=== PATIENT | female | born 1955 | race Caucasian/White ===

== ENCOUNTER 2017-11-17 09:37 | Inpatient (IN) | payer BC, OTHER ==
[2017-10-29 11:27] VITALS: BMI 36.0
--- NOTE | 2017-10-29 12:33 | PAT Medication Instructions ---
Service Date Oct 29, 2017. Current Home Medication List Aspirin (Aspirin Ec), 81 MG PO QAM Atorvastatin (Lipitor), 40 MG PO QPM Betamethasone Dip Augmented (Augmented Betamethasone D), 1 DOSE TOP QD PRN for PRN Carvedilol (Coreg), 6.25 MG PO BID Cyclobenzaprine Hcl (Flexeril), 10 MG PO TID PRN for Muscle Spasms Ergocalciferol (Vitamin D 94680 Unit), 50,000 UNIT PO UD Levothyroxine Sodium (Synthroid), 25 MCG PO QAM Losartan Potassium (Cozaar), 100 MG PO QAM Meloxicam (Mobic), 15 MG PO QAM Metformin Hcl (Glucophage), 500 MG PO QPM Zolpidem Tartrate (Zolpidem Tartrate), 1 TAB PO HS PRN for Insomnia [Ketoconazole Cr], 1 DOSE TOP UD PRN for HANDS Medication Instructions For Your Scheduled Surgery -Check with the surgeon for instructions for: Meloxicam (Mobic), 15 MG PO QAM - Hold the following medications 24 hours prior to surgery: Betamethasone Dip Augmented (Augmented Betamethasone D), 1 DOSE TOP QD PRN for PRN [Ketoconazole Cr], 1 DOSE TOP UD PRN for HANDS - Hold the following medications the morning of surgery: Cyclobenzaprine Hcl (Flexeril), 10 MG PO TID PRN for Muscle Spasms Ergocalciferol (Vitamin D 50514 Unit), 50,000 UNIT PO UD Losartan Potassium (Cozaar), 100 MG PO QAM - Take the following medications the morning of surgery with a sip of water: Aspirin (Aspirin Ec), 81 MG PO QAM Carvedilol (Coreg), 6.25 MG PO BID Levothyroxine Sodium (Synthroid), 25 MCG PO QAM - Take the following medications as scheduled the night before surgery: Atorvastatin (Lipitor), 40 MG PO QPM Carvedilol (Coreg), 6.25 MG PO BID Cyclobenzaprine Hcl (Flexeril), 10 MG PO TID PRN for Muscle Spasms (if needed) Metformin Hcl (Glucophage), 500 MG PO QPM Zolpidem Tartrate (Zolpidem Tartrate), 1 TAB PO HS PRN for Insomnia (if needed) If you have any questions please call us at [phone] or [phone] or [phone]
--- NOTE | 2017-10-29 13:00 | DIAGNOSTIC IMAGING REPORT ---
CHEST 2 VIEWS ROUTINE CLINICAL HISTORY: PAT preoperative evaluation COMPARISON STUDY: No previous studies for comparison. FINDINGS: The bones soft tissues and hemidiaphragms are normal. The cardiomediastinal silhouette is normal. The lungs are clear. The pulmonary vasculature is normal. IMPRESSION: Negative chest. The above report was generated using voice recognition software. It may contain grammatical, syntax or spelling errors. Electronically signed by: Jarrod Mccann M.D. 10/29/2017 12:59 PM Dictated Date/Time: 10/29/2017 12:58 PM
[2017-10-29 13:01] LABS: PTT PATIENT 26.1 SECONDS (21.0-31.0)
[2017-10-29 13:04] LABS: BASO % 0.7 %; BASO ABS # 0.06 K/uL (0-0.2); EOS % 2.6 %; EOS ABS # 0.23 K/uL (0-0.5); HEMATOCRIT 44.6 % (37-47); IG# 0.03 K/uL (0.00-0.02); LYMPH % 27.6 %; LYMPH ABS # 2.46 K/uL (1.2-3.4); MEAN CELL VOLUME 88.5 fL (80-100); MEAN CORPUSCULAR HEMOGLOBIN 29.8 pg (25-34); MEAN CORPUSCULAR HGB CONC 33.6 g/dl (32-36); MEAN PLATELET VOLUME 11.1 fL (7.4-10.4); MONO ABS # 0.62 K/uL (0.11-0.59); NEUT % 61.8 %; PLATELET COUNT 239 K/uL (130-400); RED CELL DISTRIBUTION WIDTH CV 13.6 % (11.5-14.5); RED CELL DISTRIBUTION WIDTH SD 43.9 fL (36.4-46.3)
[2017-10-29 13:14] LABS: HEMOGLOBIN A1C 6.2 % (4.5-5.6)
[2017-10-29 13:38] LABS: ALBUMIN 3.8 gm/dl (3.4-5.0); CALCIUM 9.1 mg/dl (8.5-10.1); CREATININE 0.84 mg/dl (0.60-1.20); POTASSIUM 4.5 mmol/L (3.5-5.1)
--- NOTE | 2017-10-30 11:04 | HISTORY & PHYSICAL EXAMINATION ---
DATE OF ADMISSION: 11/17/2017 CHIEF COMPLAINT: Right knee pain. HISTORY OF PRESENT ILLNESS: Radha is a 61-year-old female with a history of right knee pain since 03/2017. The patient rates her pain at 8/10. She has pain with her daily activities. She has limited standing and walking tolerance. Pain is worse with weightbearing. The patient has had injections, bracing, NSAIDs and home exercise program. She has failed conservative treatment and is scheduled for right knee replacement. PAST MEDICAL HISTORY: Hypertension, hypercholesterolemia, heart disease with stent placement in 2013, COPD and borderline diabetes. PAST SURGICAL HISTORY: Appendectomy, cardiac stent, left TKA, tonsillectomy, hysterectomy, cholecystectomy, carotid endarterectomy and hernia x2. SOCIAL HISTORY: The patient denies current alcohol or tobacco use. She quit smoking in 2013 when her cardiac issues developed. She lives in a single story home. She is , but lives with her son. She is retired. FAMILY HISTORY: Negative for DVT. MEDICATIONS: Metformin 500 mg daily, cyclobenzaprine 10 mg daily, carvedilol 6.25 mg b.i.d., atorvastatin 40 mg daily, levothyroxine 25 mcg daily, losartan 100 mg daily, zolpidem 10 mg daily, aspirin 81 mg daily, meloxicam 15 mg daily, ketaconazole 2% cream p.r.n. ALLERGIES: BETADINE, TYLENOL, LODINE, DEMEROL, ZEBETA, PREDNISONE, SULFA, THIAZIDE DIURETICS, ACETAMINOPHEN, MEPERIDINE, CODEINE, RELAFEN, AZITHROMYCIN. REVIEW OF SYSTEMS: See HPI. Ten other systems reviewed, all negative. PHYSICAL EXAMINATION: VITAL SIGNS: Height 5 feet 1 inch, weight 190 pounds, BMI 36. GENERAL: This is a well-developed, well-nourished female who is alert and oriented x3. Mood and affect are appropriate. HEENT: Normocephalic, atraumatic. Mucous membranes are moist and intact. NECK: Supple without lymphadenopathy. HEART: Regular rate and rhythm without murmurs, rubs or gallops. LUNGS: Clear to auscultation without wheezes or rhonchi. ABDOMEN: Soft and nontender. Bowel sounds are equal and active. EXTREMITIES: No ecchymosis, redness or warmth. She has varus deformity. Range of motion is from 0-115 degrees. She has +1 medial laxity. She has mild effusion. No distal edema. She is neurovascularly intact with +5/5 strength. X-RAY EXAMINATION: AP and lateral views show joint space narrowing and osteophyte formation. IMPRESSION: Degenerative joint disease, right knee. PLAN: The patient will be admitted for a right total knee arthroplasty. We will plan on aspirin for DVT prophylaxis and home health for therapy upon discharge.
[~2017-11-17] VITALS: Ht 154.9 cm; Wt 86.5 kg
[2017-11-17] VITALS (9 sets, daily range): BP systolic 99–162; BP diastolic 64–80; PULSE 68–87; TEMP 36.6–36.9; O2SAT 92–99; Ht 154.9 cm; Wt 86.5 kg
--- NOTE | 2017-11-17 09:35 | History & Physical Bridge Note ---
H&P Re-Evaluation Bridge Note: I have examined the patient, reviewed the History & Physical and in the interval since the performance of the History & Physical I have noted the following changes of clinical significance: No changes noted
[~2017-11-17 09:37] MED LIST: ACETAMINOPHEN 500 MG TAB PO SCH; ASPI81TA28 PO; ATOR-24 PO; ATROPINE SULFATE 0.1 MG/ML 5ML SYR IV PRN; CARV6.252 PO; CEFAZOLIN 2000MG IV PUSH 15 ML IV SCH; CYCL10TA6 PO; CeleBREX 200 MG CAP PO SCH; DEXAMETHASONE 4 MG TAB PO SCH; DPRO15 TOP; ERGO500037 PO; EpHEDrine SULFATE INJ 50 MG/ML AMP IV PRN; FAMOTIDINE 20 MG TAB PO SCH; FENTANYL CITRATE INJ 50 MCG/1 ML 2 ML VIAL ONE; GABAPENTIN 600 MG PO SCH; GLC/500 PO; KETOCONAZOLE TOP; LEVO25TA PO; LOSA1TAB38 PO; MELO7.5T5 PO; MIDAZOLAM HCL 1 MG/ML 2ML VIAL ONE; ONDANSETRON INJ 2 MG/ML 2 ML VIAL IV PRN; ROPIVACAINE 5MG/ML 30 ML 150 MG, BUPIVACAINE 0.5% MPF INJ 30 ML, EpINEphrine HCL INJ 0.... INFIL SCH; SODIUM CHLORIDE 0.9% 1000ML 1,000 ML IV SCH; ZOLP5TAB6 PO; [UNRECOGNIZED DRUG - REMARK] SCH; [UNRECOGNIZED DRUG - REMARK] SCH; [UNRECOGNIZED DRUG - REMARK] SCH; [UNRECOGNIZED DRUG - REMARK] SCH
[2017-11-17] MEDS ORDERED: BUPIVACAINE 0.5 % 5 MG/1 ML PF 10ML VIAL ONE (10:55)
[2017-11-17] MEDS ORDERED: BUPIVACAINE 0.25% 30 ML VIAL ONE ×3 (10:55→13:24)
[2017-11-17] MEDS ORDERED: BACITRACIN 50000 UNIT VIAL ONE (11:31)
[2017-11-17] MEDS ORDERED: MIDAZOLAM HCL 1 MG/ML 2ML VIAL ONE (12:25)
[2017-11-17] MEDS: POVIDONE-IODINE OP SOLN 30 ML BTL ONE ×2 (12:58→13:47)
[2017-11-17] MEDS ORDERED: EpHEDrine SULFATE 50MG/5ML SYR ONE (13:11)
[2017-11-17] MEDS ORDERED: PHENYLEPHRINE 100MCG/ML 5ML SYR ONE ×2 (13:11→13:34)
[2017-11-17] MEDS ORDERED: LIDOCAINE HCL 2% 2 ML VIAL (20MG/ML) ONE (13:11)
[2017-11-17] MEDS ORDERED: BUPIVACAINE LIPOSOME 1/3% 266 MG/20 ML VIAL ONE (13:13)
[2017-11-17] MEDS ORDERED: BUPIVACAINE 0.5 % 5 MG/1 ML MPF 30ML VIAL ONE (13:17)
[2017-11-17] MEDS ORDERED: SODIUM CHLORIDE 0.9% INJ 10 ML VIAL ONE (13:18)
[2017-11-17] MEDS ORDERED: SODIUM CHLORIDE 0.9% PF 50 ML VIAL ONE (13:18)
[2017-11-17] MEDS ORDERED: EpINEphrine INJ 1MG/ML AMP 1 MG/ML AMP ONE (13:22)
[2017-11-17] MEDS ORDERED: ONDANSETRON INJ 2 MG/ML 2 ML VIAL ONE (13:34)
--- NOTE | 2017-11-17 13:43 | [facility] Post Operative Brief Note ---
Immediate Operative Summary Operative Date November 17, 2017. Pre-Operative Diagnosis Degenerative Joint Disease, Right Knee Post-Operative Diagnosis Degenerative Joint Disease, Right Knee Procedure(s) Performed Right Total Knee Arthroplasty utilizing Machado nephLimei [employer]vertising journey to non-block total knee arthroplasty size 3 femur to tibia 9 polyethylene [address] Lopez Health And Safety Advisor Surgeon(s) Jarrod Castro PA-C, Dr Deangelo James Estimated Blood Loss 5cc Findings Consistent with Post-Op Diagnosis Specimens A: Right Knee Bone and Tissue Anesthesia Type MAC Spinal Regional Complication(s) none Disposition Disposition: Recovery Room / PACU
--- NOTE | 2017-11-17 13:44 | [facility] Operative Report ---
Operative Report Operative Date November 17, 2017. Pre-Operative Diagnosis Degenerative Joint Disease, Right Knee Post-Operative Diagnosis Degenerative Joint Disease, Right Knee Procedure(s) Performed Right Total Knee Arthroplasty utilizing Machado Yecuris journey to non-block total knee arthroplasty size 3 femur to tibia 9 polyethylene [address] Lopez Textile Science Technician Surgeon(s) Jarrod Castro PA-C, Dr Deangelo James Estimated Blood Loss 5cc Findings This time surgery patient with evidence of tricompartmental degenerative joint disease subchondral cystic changes sclerosis marginal osteophytes pseudo- ligamentous laxity moderate effusion with patellofemoral crepitus medial joint line pain tenderness as well Specimens A: Right Knee Bone and Tissue Anesthesia Type MAC Spinal Regional Complication(s) none Disposition Recovery Room / PACU Indications Patient presents after failing attempts at conservative management including physical therapy anti-inflammatories relative rest activity modification intra- articular injections including Visco supplementation as well as corticosteroids and ulnar response to conservative management patient presents for total knee arthroplasty Description of Procedure After proper prepping and draping of the Right lower extremity anterior midline incision was made over the region of the extensor extensor mechanism after meticulous hemostasis was obtained and maintained in subcutaneous tissues a medial parapatellar incision was made The patella was subluxed lateralward the medial lateral gutter were cleaned from any hypertrophic synovitis and scar tissue of the distal femoral block was placed and the distal femoral osteotomy cut was made subsequently the chamfers anterior and posterior osteotomy cuts were made utilizing the 4-in-1 block the tibia was subsequently subluxed anteriorward medial and ateral meniscal remnants were excised in their entirety remnants of the anterior and posterior cruciate ligaments were excised in their entirety excellent exposure of the proximal tibia was obtained the tibial osteotomy guide was placed on the proximal tibial osteotomy cut was made once again the knee was irrigated with copious amounts of sterile saline solution the patella was subsequently everted lateralward thickened scar tissue around the patella was removed the patella was subsequently cut utilizing a freehand technique and was drilled prepared for final preparation and placement of patella socially flexion-extension gaps were checked and the equal and symmetric trials were placed to the appropriate femoral and tibial trials with poly-spacer being placed for equal flexion and extension gaps and full range of motion including extension to 0 and flexion to 140 the trial components after having been taken to recovery range of motion was subsequently removed meticulous hemostasis was obtained and maintained subsequently a knee block injection of joint cocktail including ropivacaine 0.5% 150 mg. Bupivacaine 0.5 % epinephrine 1-200,030 mL's toradol 30 mg dexamethasone 4 mg ketamine 10 mg clonidine 100 micrograms normal saline solution 30 mg was infiltrated into the soft tissues of the posterior knee medial lateral gutters and periosteal synovium special attention was paid to protect neurovascular structures at all times subsequently trial components having been removed the knee was irrigated with sterile saline solution. debris was removed the proximal tibia was subsequently prepared and was made ready for the placement of the tibial component tibial component was also cemented and tamped into position the femoral component was subsequently placed and cemented in the position the patellar component was subsequently cemented in position because hemostasis once again obtained and maintained wound having been thoroughly irrigated with debridement and debridement lavage was performed as well as a medial parapatellar incision closed with #1 Vicryl in interrupted fashion subcutaneous was closed with #2 Vicryl skin was closed with skin clips. PA-C was necessary for prepping and drapping as well as wound closure of deep fascia Sub cutaneous tissue and skin and was necessary for the case. A sterile compressive dressing was placed patient was taken to recovery in stable condition of report dictated by John I attest to the content of the Intraoperative Record and any orders documented therein. Any exceptions are noted below. I attest to the content of the Intraoperative Record and any orders documented therein. Any exceptions are noted below.
[2017-11-17] MEDS: SODIUM CHLORIDE 0.9% 1000ML 1,000 ML IV SCH (14:18)
[2017-11-17] MEDS ORDERED: MoRPHine SULFATE 4 MG/ML 1 ML CARP\\VIAL IV PRN (14:30)
[2017-11-17] MEDS ORDERED: ZOLPIDEM TARTRATE 5 MG TAB PO PRN (14:30)
[2017-11-17] MEDS ORDERED: CYCLOBENZAPRINE HCL 10 MG TAB PO PRN (14:30)
[2017-11-17] MEDS ORDERED: MAGNESIUM HYDROXIDE SUSP 30 ML UDC PO PRN (14:30)
[2017-11-17] MEDS ORDERED: ALUMINUM/MAGNESIUM/SIMETH (MAALOX MAX) 30 ML UDC PO PRN (14:30)
[2017-11-17] MEDS ORDERED: SOD PHOSPHATE/SOD BIPHOSPHATE ENEMA 132 ML BTL PR PRN (14:30)
[2017-11-17] MEDS ORDERED: ONDANSETRON INJ 2 MG/ML 2 ML VIAL IV PRN (14:30)
[2017-11-17] MEDS ORDERED: BISACODYL 10 MG SUPP PR PRN (14:30)
--- NOTE | 2017-11-17 14:48 | DIAGNOSTIC IMAGING REPORT ---
RIGHT KNEE 2 VIEWS History: Right total knee arthroplasty. Degenerative arthritis. Postop. FINDINGS: The patient is status post a right total knee arthroplasty. The hardware is intact. No fracture or dislocation. Surgical drains are in place. IMPRESSION: Right total knee arthroplasty. No evidence for hardware complication. Electronically signed by: Chris Kiran M.D. 11/17/2017 2:47 PM Dictated Date/Time: 11/17/2017 2:45 PM
--- NOTE | 2017-11-17 15:11 | Anesthesiology Progress Note ---
Anesthesia Post Op Note Date & Time November 17, 2017 at 15:11 Vital Signs Pain Intensity: 0 Vital Signs Past 12 Hours Date Time Temp Pulse Resp B/P (MAP) Pulse Ox O2 Delivery O2 Flow Rate FiO2 11/17/17 15:05 37.0 75 18 102/56 98 Nasal Cannula 2 11/17/17 14:55 71 13 101/66 98 Nasal Cannula 2 11/17/17 14:45 75 20 110/59 98 Nasal Cannula 2 11/17/17 14:35 73 13 94/58 (71) 96 Nasal Cannula 2 11/17/17 14:25 74 12 103/52 99 Oxymask 6 11/17/17 14:18 36.7 76 16 73/43 (53) 99 Oxymask 6 11/17/17 10:28 36.9 79 20 162/80 99 Room Air Notes Mental Status: alert / awake / arousable, participated in evaluation Pt Amnestic to Procedure: Yes Nausea / Vomiting: adequately controlled Pain: adequately controlled Airway Patency, RR, SpO2: stable & adequate BP & HR: stable & adequate Hydration State: stable & adequate Neuraxial Anesthesia: was administered, sensory block is resolving Anesthetic Complications: no major complications apparent
[2017-11-17] MEDS ORDERED: MoRPHine SULFATE 10 MG/ML CARP/VIAL IV PRN (16:00)
[2017-11-17] MEDS: TAPENTADOL HCL 50 MG TAB PO PRN (18:27)
[2017-11-17] MEDS: CEFAZOLIN IV 2,000 MG in SYRINGE 0 ML IV SCH (21:32)
[2017-11-17] MEDS: ATORVASTATIN 40 MG TAB PO SCH (21:33)
[2017-11-17] MEDS: SENNA 8.6 MG TAB PO SCH (21:33)
[2017-11-17] MEDS: ASPIRIN 81 MG ECTAB PO SCH (21:33)
[2017-11-17] MEDS: DOCUSATE SODIUM 100 MG CAP PO SCH (21:34)
[2017-11-17] MEDS: CARVEDILOL 6.25 MG TAB PO SCH (21:34)
[2017-11-18] VITALS (7 sets, daily range): BP systolic 109–135; BP diastolic 59–78; PULSE 73–89; TEMP 36.4–37; O2SAT 93–98
[2017-11-18] MEDS: SODIUM CHLORIDE 0.9% 1000ML 1,000 ML IV SCH ×2 (01:53→10:46)
[2017-11-18] MEDS: TAPENTADOL HCL 50 MG TAB PO PRN ×3 (02:05→21:16)
[2017-11-18] MEDS: CEFAZOLIN IV 2,000 MG in SYRINGE 0 ML IV SCH (04:22)
[2017-11-18] MEDS: LEVOTHYROXINE 25 MCG TAB PO SCH (05:34)
[2017-11-18 06:15] LABS: HEMATOCRIT 33.4 % (37-47); HEMOGLOBIN 10.9 g/dL (12.0-16.0); MEAN CELL VOLUME 89.1 fL (80-100); MEAN CORPUSCULAR HEMOGLOBIN 29.1 pg (25-34); MEAN CORPUSCULAR HGB CONC 32.6 g/dl (32-36); MEAN PLATELET VOLUME 10.8 fL (7.4-10.4); PLATELET COUNT 171 K/uL (130-400); RED CELL DISTRIBUTION WIDTH CV 13.9 % (11.5-14.5); RED CELL DISTRIBUTION WIDTH SD 45.4 fL (36.4-46.3); WHITE BLOOD COUNT 9.85 K/uL (4.8-10.8)
[2017-11-18 06:29] LABS: INR 1.1 (0.9-1.1)
[2017-11-18 06:43] LABS: CALCIUM 7.6 mg/dl (8.5-10.1); CREATININE 1.17 mg/dl (0.60-1.20); POTASSIUM 4.6 mmol/L (3.5-5.1)
--- NOTE | 2017-11-18 08:00 | Orthopedic Progress Note ---
Orthopedic Progress Note Date of Service November 18, 2017. Subjective Post OP Day: 1 Additional Notes: Pt awake, alert. c/o pain in the knee this AM. No other complaints. Objective calves soft nontender, N/V intact, dressing C/D/I, A&O x3, toes mobile, hemovac drainage (100ml latest shift) Date Time Temp Pulse Resp B/P (MAP) Pulse Ox O2 Delivery O2 Flow Rate FiO2 11/18/17 06:58 36.7 82 18 119/78 (92) 98 Nasal Cannula 2.0 11/18/17 03:13 37.0 82 16 110/70 (83) 93 Nasal Cannula 2.0 11/18/17 00:40 Room Air 11/17/17 22:55 36.6 83 19 136/69 (91) 92 Room Air 11/17/17 21:34 85 130/74 (92) 92 Room Air 11/17/17 20:47 108/64 (79) 11/17/17 20:12 36.6 87 18 112/72 (85) 99 Nasal Cannula 2.0 11/17/17 19:19 36.6 68 18 111/65 (80) 95 Nasal Cannula 2.0 11/17/17 18:10 36.8 84 16 99/78 (85) 98 Room Air 2.0 11/17/17 17:45 36.9 85 18 137/71 (93) 95 Nasal Cannula 2.0 11/17/17 17:10 Nasal Cannula 11/17/17 17:05 36.8 84 16 108/64 (79) 97 Nasal Cannula 2.0 11/17/17 17:05 Nasal Cannula 11/17/17 16:45 36.2 79 18 98/64 (75) 100 Nasal Cannula 2 11/17/17 16:30 76 14 92/56 (63) 100 Nasal Cannula 2 11/17/17 16:15 74 12 102/49 100 Nasal Cannula 2 11/17/17 16:00 73 15 93/63 (85) 100 Nasal Cannula 2 11/17/17 15:45 71 17 103/58 100 Nasal Cannula 2 11/17/17 15:30 71 16 99/73 100 Nasal Cannula 2 11/17/17 15:15 74 18 117/59 99 Nasal Cannula 2 11/17/17 15:05 37.0 75 18 102/56 98 Nasal Cannula 2 11/17/17 14:55 71 13 101/66 98 Nasal Cannula 2 11/17/17 14:45 75 20 110/59 98 Nasal Cannula 2 11/17/17 14:35 73 13 94/58 (71) 96 Nasal Cannula 2 11/17/17 14:25 74 12 103/52 99 Oxymask 6 11/17/17 14:18 36.7 76 16 73/43 (53) 99 Oxymask 6 11/17/17 10:28 36.9 79 20 162/80 99 Room Air Laboratory Results 24 Hours: Test 11/18/17 05:55 Hematocrit 33.4 % Hemoglobin 10.9 g/dL Prothromb Time International Ratio 1.1 Prothrombin Time 11.5 SECONDS Assessment & Plan Assessment: POD 1 s/p Right TKA Acute Blood Loss Anemia due to surgical loss/dilutional Plan: PT/OT Planning on PT for 2 weeks upon DC Inhouse Planning Pain Management: Morphine, other (Nucynta) DVT Prophylaxis: TEDs, SCDs, ASA Discharge Planning Discharge Planning: home with home health
[2017-11-18] MEDS ORDERED: GLUCOSE 10 TABS/TUBE PO PRN (09:00)
[2017-11-18] MEDS ORDERED: GLUCOSE 40% GEL 15 GM TUBE PO PRN (09:00)
[2017-11-18] MEDS ORDERED: GLUCAGON FOR INJ 1 MG VIAL IM PRN (09:00)
[2017-11-18] MEDS ORDERED: CARBOHYDRATES FOR HYPOGLYCEMIA PO PRN (09:00)
[2017-11-18] MEDS ORDERED: DEXTROSE 50% 50 ML SYR IV PRN (09:00)
[2017-11-18] MEDS: MULTIVITAMIN TAB PO SCH (09:02)
[2017-11-18] MEDS: CARVEDILOL 6.25 MG TAB PO SCH ×2 (09:02→21:16)
[2017-11-18] MEDS: DOCUSATE SODIUM 100 MG CAP PO SCH ×2 (09:02→21:16)
[2017-11-18] MEDS: ASPIRIN 81 MG ECTAB PO SCH ×2 (09:02→21:16)
[2017-11-18] MEDS: PANTOprazole SOD 40 MG TAB PO SCH (09:03)
[2017-11-18] MEDS: LOSARTAN POTASSIUM 50 MG TAB PO SCH (09:03)
[2017-11-18] MEDS: MELOXICAM 7.5 MG TAB PO SCH (09:06)
--- NOTE | 2017-11-18 11:41 | Medical Consult ---
Consultation Date of Consultation: November 18, 2017. Attending Physician: Christophe Lopez D.O. Reason for Consultation: Medical management History of Present Illness Patient is a 61 y/o female, with PMHx of HTN, HLD, CAD s/p cardiac stenting, COPD, hypothyroidism, and pre-DM, s/p R TKA on 11/[address] Lopez. Patient sitting in bedside chair. Eating and drinking OK. Pain is well controlled, currently 10/20. +flatus, no BM postop. Patient denies any fever, chills, sweats , lightheadedness, dizziness, vision changes, CP, palpitations, edema, SOB, wheezing, cough, abdominal pain, nausea, vomiting, diarrhea, urinary symptoms, melena, numbness/tingling, weakness, anxiety/depression, active bleeding, or new skin discoloration/changes. Past Medical/Surgical History PAST MEDICAL HISTORY: Hypertension hypercholesterolemia CAD s/p stent placement in 2013 COPD pre-DM hypothyroidism PAST SURGICAL HISTORY: Appendectomy cardiac stent left TKA tonsillectomy hysterectomy cholecystectomy carotid endarterectomy hernia repair x2 Social History Smoking Status: Former Smoker Alcohol Use: none Drug Use: none Marital Status: Housing Status: lives with family Occupation Status: retired Allergies Coded Allergies: Meperidine (Verified Allergy, Severe, SWELLING, 10/29/17) Acetaminophen (Verified Allergy, Unknown, FACIAL SWELLING, 10/29/17) Azithromycin (Verified Allergy, Unknown, GI UPSET, 10/29/17) Bisoprolol (Verified Allergy, Unknown, ANAPHYLAXIS, 10/29/17) Codeine (Verified Allergy, Unknown, PER PT, SHE HAS TOLERATED MORPHINE AND PERCOCET BEFORE, 08/17/09) Etodolac (Verified Allergy, Unknown, ANAPHYLAXIS, 10/29/17) Hydrochlorothiazide (Verified Allergy, Unknown, ANAPHYLAXIS, 10/29/17) PT STATES SHE DEVELOPED ANAPHYLAXIS AFTER BEING PLACED ON 3 NEW MEDS. UNSURE OF WHICH ONE WAS THE TRUE CAUSE. Latex1 -Allergic Contact Dermititis (Verified Allergy, Unknown, RASH, 10/29) Nabumetone (Verified Allergy, Unknown, NAUSEA/VOMITING, 10/29/17) Oxycodone (Verified Allergy, Unknown, NAUSEA/VOMITING, 10/29/17) Povidone Iodine (Verified Allergy, Unknown, RASH, 10/29/17) Prednisone (Verified Allergy, Unknown, SWELLING, 10/29/17) Propoxyphene (Verified Allergy, Unknown, NAUSEA AND VOMITING, 10/29/17) Sulfa Drugs (Verified Allergy, Unknown, TOLERATES LASIX, GI UPSET, 10/29/17 ) Thiazide-Type Diuretics (Verified Allergy, Unknown, N/V, 10/29/17) Home Medications Reported Home Medications Medications Dose Route/Sig Max Daily Dose Days Date Category Vitamin D 00969 Unit (Ergocalciferol) 50,000 Unit Cap 50,000 Unit PO UD 10/29/17 Reported [Ketoconazole Cr] 1 Dose TOP UD PRN 10/29/17 Reported Mobic (Meloxicam) 7.5 Mg Tab 15 Mg PO QAM 10/29/17 Reported Aspirin Ec (Aspirin) 81 Mg Tab 81 Mg PO QAM 10/29/17 Reported Zolpidem Tartrate 5 Mg Tab 1 Tab PO HS PRN 30 10/29/17 Reported Cozaar (Losartan Potassium) 100 Mg Tab 100 Mg PO QAM 10/29/17 Reported Synthroid (Levothyroxine Sodium) 25 Mcg Tab 25 Mcg PO QAM 10/29/17 Reported Lipitor (Atorvastatin Calcium) 40 Mg Tab 40 Mg PO QPM 10/29/17 Reported Coreg (Carvedilol) 6.25 Mg Tab 6.25 Mg PO BID 10/29/17 Reported Flexeril (Cyclobenzaprine Hcl) 10 Mg Tab 10 Mg PO TID PRN 10/29/17 Reported Glucophage (Metformin Hcl) 500 Mg Tab 500 Mg PO QPM 10/29/17 Reported Current Inpatient Medications Current Inpatient Medications Medications (Trade) Dose Ordered Sig/Lisseth Route Start Time Stop Time Status Last Admin Dose Admin Sodium Chloride 1,000 ml @ 100 mls/hr Q10H IV 11/17/17 14:18 11/18/17 14:17 11/18/17 01:53 100 MLS/HR Magnesium Hydroxide (Milk Of Magnesia Susp) 30 ml Q6H PRN PO 11/17/17 14:30 12/17/17 14:29 Bisacodyl (Dulcolax Supp) 10 mg DAILY PRN PA 11/17/17 14:30 12/17/17 14:29 Sodium Biphosphate/ Sodium Phosphate (Fleet Enema) 132 ml DAILY PRN PA 11/17/17 14:30 12/17/17 14:29 Senna (Senokot Tab) 17.2 mg HS PO 11/17/17 21:00 12/17/17 20:59 11/17/17 21:33 17.2 MG Docusate Sodium (coLACE CAP) 100 mg BID PO 11/17/17 21:00 12/17/17 20:59 11/17/17 21:34 100 MG Diphenhydramine HCl (Benadryl Cap) 25 mg Q8H PRN PO 11/17/17 14:30 12/17/17 14:29 Al Hydrox/Mg Hydrox/Simethicone (Maalox Max Susp) 15 ml Q4H PRN PO 11/17/17 14:30 12/17/17 14:29 Multivitamins (Multivitamin Tab) 1 tab QAM PO 11/18/17 09:00 12/18/17 08:59 Ondansetron HCl (Zofran Inj) 4 mg Q6H PRN IV 11/17/17 14:30 12/17/17 14:29 Pantoprazole Sodium (Protonix Tab) 40 mg QAM PO 11/18/17 09:00 11/21/17 09:01 Aspirin (Ecotrin Tab) 81 mg BID PO 11/17/17 21:00 12/17/17 20:59 11/17/17 21:33 81 MG Atorvastatin Calcium (Lipitor Tab) 40 mg QPM PO 11/17/17 21:00 12/17/17 20:59 11/17/17 21:33 40 MG Carvedilol (Coreg Tab) 6.25 mg BID PO 11/17/17 21:00 12/17/17 20:59 11/17/17 21:34 6.25 MG Cyclobenzaprine HCl (Flexeril Tab) 10 mg TID PRN PO 11/17/17 14:30 12/17/17 14:29 Levothyroxine Sodium (Synthroid Tab) 25 mcg DAILYBB PO 11/18/17 06:00 12/18/17 05:59 11/18/17 05:34 25 MCG Losartan Potassium (coZAAR TAB) 100 mg QAM PO 11/18/17 09:00 12/18/17 08:59 Meloxicam (Mobic Tab) 15 mg QAM PO 11/18/17 09:00 12/18/17 08:59 Zolpidem Tartrate (Ambien Tab) 5 mg HS PRN PO 11/17/17 14:30 12/17/17 14:29 Miscellaneous Information (Order Awaiting Action) 1 ea QS N/A 11/18/17 00:00 12/18/17 00:00 Morphine Sulfate (MoRPHine SULFATE INJ) 2mg IV for Pain rating ... Q4HWA PRN IV 11/17/17 14:30 12/01/17 14:29 Morphine Sulfate (MoRPHine SULFATE INJ) 6 mg Q4HWA PRN IV 11/17/17 16:00 12/01/17 15:59 Tapentadol (Nucynta Tab) `1-2 tabs for pain 1 tab ... Q4H PRN PO 11/18/17 08:15 12/17/17 14:29 Physical Exam Date Time Temp Pulse Resp B/P (MAP) Pulse Ox O2 Delivery O2 Flow Rate FiO2 11/18/17 06:58 36.7 82 18 119/78 (92) 98 Nasal Cannula 2.0 11/18/17 03:13 37.0 82 16 110/70 (83) 93 Nasal Cannula 2.0 11/18/17 00:40 Room Air 11/17/17 22:55 36.6 83 19 136/69 (91) 92 Room Air 11/17/17 21:34 85 130/74 (92) 92 Room Air 11/17/17 20:47 108/64 (79) 11/17/17 20:12 36.6 87 18 112/72 (85) 99 Nasal Cannula 2.0 11/17/17 19:19 36.6 68 18 111/65 (80) 95 Nasal Cannula 2.0 11/17/17 18:10 36.8 84 16 99/78 (85) 98 Room Air 2.0 11/17/17 17:45 36.9 85 18 137/71 (93) 95 Nasal Cannula 2.0 11/17/17 17:10 Nasal Cannula 11/17/17 17:05 36.8 84 16 108/64 (79) 97 Nasal Cannula 2.0 11/17/17 17:05 Nasal Cannula 11/17/17 16:45 36.2 79 18 98/64 (75) 100 Nasal Cannula 2 11/17/17 16:30 76 14 92/56 (63) 100 Nasal Cannula 2 11/17/17 16:15 74 12 102/49 100 Nasal Cannula 2 11/17/17 16:00 73 15 93/63 (85) 100 Nasal Cannula 2 11/17/17 15:45 71 17 103/58 100 Nasal Cannula 2 11/17/17 15:30 71 16 99/73 100 Nasal Cannula 2 11/17/17 15:15 74 18 117/59 99 Nasal Cannula 2 11/17/17 15:05 37.0 75 18 102/56 98 Nasal Cannula 2 11/17/17 14:55 71 13 101/66 98 Nasal Cannula 2 11/17/17 14:45 75 20 110/59 98 Nasal Cannula 2 11/17/17 14:35 73 13 94/58 (71) 96 Nasal Cannula 2 11/17/17 14:25 74 12 103/52 99 Oxymask 6 11/17/17 14:18 36.7 76 16 73/43 (53) 99 Oxymask 6 11/17/17 10:28 36.9 79 20 162/80 99 Room Air General Appearance: no apparent distress, + obese Head: normocephalic, atraumatic Eyes: normal inspection, PERRL ENT: hearing grossly normal Neck: supple Respiratory/Chest: lungs clear, no respiratory distress, no accessory muscle use, + decreased breath sounds (bilateral lung bases ) Cardiovascular: regular rate, rhythm Abdomen/GI: normal bowel sounds, non tender, soft Back: normal inspection Extremities/Musculoskelatal: no calf tenderness, + pertinent finding (hemovac w / bloody output; JASON on LLE; RLE in SMITA bandage ) Neurologic/Psych: alert, oriented x 3, + pertinent finding (drowsy) Laboratory Results Last 24 Hours Test 11/17/17 10:08 11/17/17 14:22 11/17/17 17:29 11/17/17 20:11 Bedside Glucose 122 mg/dl 94 mg/dl 76 mg/dl 145 mg/dl Test 11/18/17 05:55 White Blood Count 9.85 K/uL Red Blood Count 3.75 M/uL Hemoglobin 10.9 g/dL Hematocrit 33.4 % Mean Corpuscular Volume 89.1 fL Mean Corpuscular Hemoglobin 29.1 pg Mean Corpuscular Hemoglobin Concent 32.6 g/dl RDW Standard Deviation 45.4 fL RDW Coefficient of Variation 13.9 % Platelet Count 171 K/uL Mean Platelet Volume 10.8 fL Prothrombin Time 11.5 SECONDS Prothromb Time International Ratio 1.1 Sodium Level 136 mmol/L Potassium Level 4.6 mmol/L Chloride Level 104 mmol/L Carbon Dioxide Level 28 mmol/L Anion Gap 4.0 mmol/L Blood Urea Nitrogen 22 mg/dl Creatinine 1.17 mg/dl Est Creatinine Clear Calc Drug Dose 49.1 ml/min Estimated GFR () 57.4 Estimated GFR (Non- 49.6 BUN/Creatinine Ratio 18.5 Random Glucose 127 mg/dl Calcium Level 7.6 mg/dl Assessment & Plan Patient is a 61 y/o female, with PMHx of HTN, HLD, CAD s/p cardiac stenting, hypothyroidism, COPD, and pre-DM, s/p R TKA on 11/[address] Lopez. s/p R TKA on 11/[address] Lopez: - Surgical management, pain management, PT/OT, and DVT prophylaxis - Bowel regimen ordered - Encourage incentive spirometer - Postop CBC and PRP- STABLE Acute blood loss anemia in postop setting- STABLE: Follow CBC CAD s/p cardiac stenting, HTN, HLD: Continue ASA, Lipitor, Losartan, Coreg Hypothyroidism: Continue Synthroid Pre-DM- hgbA1c 6.2%: - Hold Metformin while inpatient - BSG ACHS and ISS GI prophylaxis: Protonix daily DVT prophylaxis: ASA BID Code status: LEVEL I, FULL Dispo: As per primary team
[2017-11-18] MEDS: INSULIN ASPART 100 UNITS/ML 3 ML PEN SC SCH ×3 (13:28→21:00)
[2017-11-18] MEDS: SENNA 8.6 MG TAB PO SCH (21:16)
[2017-11-18] MEDS: ATORVASTATIN 40 MG TAB PO SCH (21:16)
[2017-11-19] MEDS: LEVOTHYROXINE 25 MCG TAB PO SCH (06:10)
[2017-11-19] MEDS: TAPENTADOL HCL 50 MG TAB PO PRN ×2 (06:12→10:28)
[2017-11-19 06:34] LABS: HEMATOCRIT 28.1 % (37-47); HEMOGLOBIN 9.5 g/dL (12.0-16.0); MEAN CELL VOLUME 88.4 fL (80-100); MEAN CORPUSCULAR HEMOGLOBIN 29.9 pg (25-34); MEAN CORPUSCULAR HGB CONC 33.8 g/dl (32-36); MEAN PLATELET VOLUME 10.8 fL (7.4-10.4); PLATELET COUNT 151 K/uL (130-400); RED CELL DISTRIBUTION WIDTH CV 13.6 % (11.5-14.5); RED CELL DISTRIBUTION WIDTH SD 44.1 fL (36.4-46.3); WHITE BLOOD COUNT 7.86 K/uL (4.8-10.8)
[2017-11-19 07:50] VITALS: BP 112/70; PULSE 82; TEMP 36.8; O2SAT 94
[2017-11-19] MEDS: INSULIN ASPART 100 UNITS/ML 3 ML PEN SC SCH (08:00)
--- NOTE | 2017-11-19 08:59 | Orthopedic Progress Note ---
Orthopedic Progress Note Date of Service November 19, 2017. Subjective Post OP Day: 2 Reports: feeling well, Denies: chest pain, SOB, nausea / vomiting, light headedness, calf pain Objective calves soft nontender, N/V intact, capillary refill less than 2 sec., incision C /D/I (ECCYMOSIS AND EDEMA NOTED), A&O x3, toes mobile Date Time Temp Pulse Resp B/P (MAP) Pulse Ox O2 Delivery O2 Flow Rate FiO2 11/19/17 07:50 36.8 82 16 112/70 (84) 94 Room Air 11/19/17 07:24 37.0 88 18 94 Room Air 11/19/17 07:00 Room Air 11/18/17 22:56 37.0 88 18 135/75 (95) 94 Room Air 11/18/17 21:12 83 121/71 (88) 11/18/17 19:50 Room Air 11/18/17 14:57 36.8 89 16 117/69 (85) 97 Room Air 11/18/17 10:47 36.4 73 14 109/59 (76) 94 Room Air 11/18/17 10:40 83 93 Laboratory Results 24 Hours: Test 11/19/17 06:01 Hematocrit 28.1 % Hemoglobin 9.5 g/dL Assessment & Plan Assessment: POD 2 s/p Right TKA Acute Blood Loss Anemia due to surgical loss/dilutional Plan: PT/OT Planning on PT for 2 weeks upon DC. DC HOME TODAY PAIN MANAGEMENT- NUCYNTA DVT PROPH- ASA 81MG BID Inhouse Planning Pain Management: Morphine, other (Nucynta) DVT Prophylaxis: TEDs, SCDs, ASA Discharge Planning Discharge Planning: home with home health
[2017-11-19] MEDS ORDERED: SENN-61 PO (09:03)
[2017-11-19] MEDS ORDERED: FRRS300 PO (09:03)
[2017-11-19] MEDS ORDERED: ONDA-170 PO (09:03)
[2017-11-19] MEDS ORDERED: ASPI81TA28 PO (09:03)
[2017-11-19] MEDS ORDERED: NCY50 PO (09:03)
--- NOTE | 2017-11-19 09:04 | Discharge Instructions ---
Discharge Instructions Date of Service November 19, 2017. Admission Reason for Admission: Right Knee Osteoarthritis Discharge Discharge Diagnosis / Problem: SP RIGHT TKA Discharge Goals Goal(s): Decrease discomfort, Improve function, Increase independence Activity Recommendations Activity Limitations: per Instructions/Follow-up section . Instructions / Follow-Up Instructions / Follow-Up ACTIVITY RECOMMENDATIONS: SELF CARE INSTRUCTIONS AFTER TOTAL KNEE REPLACEMENT A. You may need to continue a physical therapy program after discharge from the hospital. There are several options available to you. Your doctor will assist you in selecting the best one for you. 1. An out-patient facility 2 to 3 times a week for therapy or home therapy. 2. Continue working on all exercises taught to you in the hospital. Your goals should be to increase bending of your knee to 90 degrees and beyond and to fully straighten your knee. B. You may progress at your own pace from walking with a walker or crutches to a cane; then to no assistive devices. C. Make walking a part of your daily routine. Be up as much as comfortable with rest periods throughout the day. Rest with leg elevation is very important. Use the ice wrap frequently for the first 3-4 weeks. D. There are no restrictions on activities. You may ride in a car, shop, participate in archives director and all social activities. E. Wear the long elastic stockings (JASON hose) 20 hours a day for 2 weeks after surgery. They can be removed several times a day for laundering and for a bath. F. You may shower, no tub baths until cleared by your doctor. SPECIAL CARE INSTRUCTIONS: VERY IMPORTANT TO READ AND REVIEW A. There are a few signs you need to watch for after you are home. Call [facility] if you notice any of the followin. Increased severe knee pain. Some pain is expected especially when you exercise. 2. Increased swelling in your leg or knee; pain or swelling of the calf muscle in either lower leg. 3. Any fluid drainage from the incision. 4. Shortness of breath or chest pain. B. Please call [facility] at if you have any concerns or questions about your operation or recovery. The doctor or his nurse will return your call promptly. C. You must take antibiotics before dental work, bladder, bowel or other surgery. Your doctor will provide you with a permanent care to carry describing this precaution. IMPORTANT: * REMEMBER TO TAKE ASPIRIN, 81 MG, TWICE DAILY FOR 4 WEEKS UNLESS OTHERWISE DIRECTED. THIS IS YOUR BLOOD THINNER. * HIGH RISK PATIENTS MAY BE PRESCRIBED A STRONGER BLOOD THINNER. THIS WILL BE PROVIDED AT DISCHARGE. * CALL IF INCREASED PAIN, REDNESS, DRAINAGE OR FEVER GREATER THAT 101. * WEAR JASON HOSE 20 HOURS PER DAY FOR 2 WEEKS. * DERMABOND Prineo- This is a mesh tape dressing that is covered with glue. It should remain in place until the incision is properly healed, usually 10-14 days. This dressing is designed to naturally slough off. You may trim the excess mesh tape as it peels off. Incision may be briefly wet in a shower. Dry immediately by blotting with a clean, dry towel. Do not bath or swim until instructed by your doctor. Do not scratch, rub, or pick at the dressing. Do not apply any topical ointments or lotions until dressing is completely removed and/or instructed by your doctor. There may be a small piece of suture material at one end of your incision. Do not pull or trim this. If it is bothersome or catching on clothing, you may cover it with a band-aid. FOLLOW UP VISIT: If appointment is not already scheduled: Please call [facility] to make a follow-up appointment for 2 weeks after your surgery at . Current Hospital Diet Patient's current hospital diet: Diabetes Type 2 Diet Discharge Diet Recommended Diet: Regular Diet Procedures Procedures Performed: Right Total Knee Arthroplasty utilizing Machado nephTrack the Bet journey to non-block total knee arthroplasty size 3 femur to tibia 9 polyethylene 29 oval patella Pending Studies Studies pending at discharge: no Laboratory Results Hemoglobin A1c Test 10/29/17 12:01 Range/Units Estimated Average Glucose 131 mg/dl Hemoglobin A1c 6.2 H 4.5-5.6 % Medical Emergencies . Who to Call and When: Medical Emergencies: If at any time you feel your situation is an emergency, please call 911 immediately. . Non-Emergent Contact Non-Emergency issues call your: Surgeon . "Provider Documentation" section prepared by Alma Oneil. . [place] Drug Monitoring Program Search Results: patient reviewed within database, no issues identified
[2017-11-19] MEDS: PANTOprazole SOD 40 MG TAB PO SCH (09:21)
[2017-11-19] MEDS: MULTIVITAMIN TAB PO SCH (09:21)
[2017-11-19] MEDS: CARVEDILOL 6.25 MG TAB PO SCH (09:21)
[2017-11-19] MEDS: ASPIRIN 81 MG ECTAB PO SCH (09:22)
[2017-11-19] MEDS: LOSARTAN POTASSIUM 50 MG TAB PO SCH (09:22)
[2017-11-19] MEDS: MELOXICAM 7.5 MG TAB PO SCH (09:22)
[2017-11-19] MEDS: DOCUSATE SODIUM 100 MG CAP PO SCH (09:22)
--- NOTE | 2017-11-19 10:10 | Hospitalist Progress Note ---
Hospitalist Progress Note Date of Service November 19, 2017. Subjective Pt evaluation today including: conversation w/ patient, physical exam, lab review, review of inpatient medication list Voiding: no voiding problems Patient sitting in bedside chair. Pain well controlled. Eating and drinking OK. +BM and flatus postop. Planning for discharge today. Patient denies any fever, chills, sweats, lightheadedness, dizziness, vision changes, CP, palpitations, edema, SOB, wheezing, cough, abdominal pain, nausea, vomiting, diarrhea, urinary symptoms, melena, numbness/tingling, weakness, anxiety/depression, active bleeding, or new skin discoloration/changes. Medications Current Inpatient Medications Medications (Trade) Dose Ordered Sig/Lisseth Route Start Time Stop Time Status Last Admin Dose Admin Magnesium Hydroxide (Milk Of Magnesia Susp) 30 ml Q6H PRN PO 11/17/17 14:30 12/17/17 14:29 Bisacodyl (Dulcolax Supp) 10 mg DAILY PRN NH 11/17/17 14:30 12/17/17 14:29 Sodium Biphosphate/ Sodium Phosphate (Fleet Enema) 132 ml DAILY PRN NH 11/17/17 14:30 12/17/17 14:29 Senna (Senokot Tab) 17.2 mg HS PO 11/17/17 21:00 12/17/17 20:59 11/18/17 21:16 17.2 MG Docusate Sodium (coLACE CAP) 100 mg BID PO 11/17/17 21:00 12/17/17 20:59 11/19/17 09:22 100 MG Diphenhydramine HCl (Benadryl Cap) 25 mg Q8H PRN PO 11/17/17 14:30 12/17/17 14:29 Al Hydrox/Mg Hydrox/Simethicone (Maalox Max Susp) 15 ml Q4H PRN PO 11/17/17 14:30 12/17/17 14:29 Multivitamins (Multivitamin Tab) 1 tab QAM PO 11/18/17 09:00 12/18/17 08:59 11/19/17 09:21 1 TAB Ondansetron HCl (Zofran Inj) 4 mg Q6H PRN IV 11/17/17 14:30 12/17/17 14:29 Pantoprazole Sodium (Protonix Tab) 40 mg QAM PO 11/18/17 09:00 11/21/17 09:01 11/19/17 09:21 40 MG Aspirin (Ecotrin Tab) 81 mg BID PO 11/17/17 21:00 12/17/17 20:59 11/19/17 09:22 81 MG Atorvastatin Calcium (Lipitor Tab) 40 mg QPM PO 11/17/17 21:00 12/17/17 20:59 11/18/17 21:16 40 MG Carvedilol (Coreg Tab) 6.25 mg BID PO 11/17/17 21:00 12/17/17 20:59 11/19/17 09:21 6.25 MG Cyclobenzaprine HCl (Flexeril Tab) 10 mg TID PRN PO 11/17/17 14:30 12/17/17 14:29 Levothyroxine Sodium (Synthroid Tab) 25 mcg DAILYBB PO 11/18/17 06:00 12/18/17 05:59 11/19/17 06:10 25 MCG Losartan Potassium (coZAAR TAB) 100 mg QAM PO 11/18/17 09:00 12/18/17 08:59 11/19/17 09:22 100 MG Meloxicam (Mobic Tab) 15 mg QAM PO 11/18/17 09:00 12/18/17 08:59 11/19/17 09:22 15 MG Zolpidem Tartrate (Ambien Tab) 5 mg HS PRN PO 11/17/17 14:30 12/17/17 14:29 Miscellaneous Information (Order Awaiting Action) 1 ea QS N/A 11/18/17 00:00 12/18/17 00:00 11/19/17 08:00 1 EA Morphine Sulfate (MoRPHine SULFATE INJ) 2mg IV for Pain rating ... Q4HWA PRN IV 11/17/17 14:30 12/01/17 14:29 Morphine Sulfate (MoRPHine SULFATE INJ) 6 mg Q4HWA PRN IV 11/17/17 16:00 12/01/17 15:59 Tapentadol (Nucynta Tab) `1-2 tabs for pain 1 tab ... Q4H PRN PO 11/18/17 08:15 12/17/17 14:29 11/19/17 06:12 50 MG Insulin Aspart (novoLOG ASPART) SLIDING SCALE G... ACHS SC 11/18/17 12:00 12/18/17 11:59 11/18/17 18:44 2 UNITS Glucose (Glucose 40% Gel) 15-30 GRAMS 15 GRAMS... UD PRN PO 11/18/17 09:00 12/18/17 08:59 Glucose (Glucose Chew Tab) 4-8 Tablets 4 Tabl... UD PRN PO 11/18/17 09:00 12/18/17 08:59 Dextrose (Dextrose 50% 50ML Syringe) 25-50ML 25ML FOR ... UD PRN IV 11/18/17 09:00 12/18/17 08:59 Glucagon (Glucagon Inj) 1 mg UD PRN IM 11/18/17 09:00 12/18/17 08:59 Carbohydrates (Carbohydrates For Hypoglycemia) 15-30 GRAMS 15 grams if BSG 54-69... UD PRN PO 11/18/17 09:00 12/18/17 08:59 Ferrous Sulfate (Feosol Tab) 325 mg BIDM PO 11/19/17 12:30 12/19/17 12:29 Objective Vital Signs Date Time Temp Pulse Resp B/P (MAP) Pulse Ox O2 Delivery O2 Flow Rate FiO2 11/19/17 07:50 36.8 82 16 112/70 (84) 94 Room Air 11/19/17 07:24 37.0 88 18 94 Room Air 11/19/17 07:00 Room Air 11/18/17 22:56 37.0 88 18 135/75 (95) 94 Room Air 11/18/17 21:12 83 121/71 (88) 11/18/17 19:50 Room Air 11/18/17 14:57 36.8 89 16 117/69 (85) 97 Room Air 11/18/17 10:47 36.4 73 14 109/59 (76) 94 Room Air 11/18/17 10:40 83 93 Physical Exam General Appearance: no apparent distress, + obese Eyes: normal inspection, PERRL ENT: hearing grossly normal Neck: supple Respiratory/Chest: lungs clear, no respiratory distress, no accessory muscle use Cardiovascular: regular rate, rhythm Abdomen: normal bowel sounds, non tender, soft, no organomegaly, no pulsatile mass Extremities: no pedal edema, no calf tenderness Neurologic/Psychiatric: alert, normal mood/affect, oriented x 3 Skin: normal color, warm/dry, no rash Laboratory Results Last 24 Hours Test 11/18/17 12:09 11/18/17 17:03 11/18/17 19:49 11/18/17 20:48 Bedside Glucose 103 mg/dl 125 mg/dl 136 mg/dl 141 mg/dl Test 11/19/17 06:01 White Blood Count 7.86 K/uL Red Blood Count 3.18 M/uL Hemoglobin 9.5 g/dL Hematocrit 28.1 % Mean Corpuscular Volume 88.4 fL Mean Corpuscular Hemoglobin 29.9 pg Mean Corpuscular Hemoglobin Concent 33.8 g/dl RDW Standard Deviation 44.1 fL RDW Coefficient of Variation 13.6 % Platelet Count 151 K/uL Mean Platelet Volume 10.8 fL Assessment and Plan Patient is a 61 y/o female, with PMHx of HTN, HLD, CAD s/p cardiac stenting, hypothyroidism, COPD, and pre-DM, s/p R TKA on 11/[address] Lopez. s/p R TKA on 11/[address] Lopez: - Surgical management, pain management, PT/OT, and DVT prophylaxis - Bowel regimen ordered - Encourage incentive spirometer - Postop CBC and PRP- STABLE Acute blood loss anemia in postop setting- STABLE: - Follow CBC - Start Iron supplement BID CAD s/p cardiac stenting, HTN, HLD: Continue ASA, Lipitor, Losartan, Coreg Hypothyroidism: Continue Synthroid Pre-DM- hgbA1c 6.2%: - Hold Metformin while inpatient- resume at discharge - BSG ACHS and ISS GI prophylaxis: Protonix daily DVT prophylaxis: ASA BID Code status: LEVEL I, FULL Dispo: As per primary team- planning for today- medically stable, will sign-off - please call with any question/concerns.
[2017-11-19] MEDS ORDERED: FERROUS SULFATE 325 MG TAB PO SCH (12:30)
--- NOTE | 2017-11-20 08:29 | Discharge Summary ---
Orthopedic Discharge Summary Admission Date/Reason November 17, 2017 at 10:49 Right Knee Osteoarthritis. Discharge Date/Disposition November 19, 2017 Home with services Diagnosis Principal Diagnosis: right knee osteoarthritis Procedure(s) Performed Right Total Knee Arthroplasty utilizing Machado nephew journey to non-block total knee arthroplasty size 3 femur to tibia 9 polyethylene 29 oval patella Medication Reconciliation New Medications: Ondansetron Hcl (Zofran) 8 Mg Tab 8 MG PO Q8 PRN for Nausea, #20 TAB Ferrous Sulfate (Ferrous Sulfate) 325 Mg Tab 325 MG PO BIDM for 30 Days, #60 TAB Senna (Senokot) 8.6 Mg Tab 17.2 MG PO HS for 14 Days, #28 TAB Tapentadol HCl (Nucynta) 50 Mg Tab 50-100 MG PO Q4H PRN for Pain, #60 TAB Changed Medications: Aspirin (Aspirin Ec) 81 Mg Tab 81 MG PO BID for 30 Days, #60 TAB (Changed from: QAM) Continued Medications: Atorvastatin (Lipitor) 40 Mg Tab 40 MG PO QPM, TAB Carvedilol (Coreg) 6.25 Mg Tab 6.25 MG PO BID, TAB Cyclobenzaprine Hcl (Flexeril) 10 Mg Tab 10 MG PO TID PRN for Muscle Spasms, #21 TAB Ergocalciferol (Vitamin D 80292 Unit) 50,000 Unit Cap 63461 UNIT PO UD, CAP Levothyroxine Sodium (Synthroid) 25 Mcg Tab 25 MCG PO QAM, TAB Losartan Potassium (Cozaar) 100 Mg Tab 100 MG PO QAM, TAB Metformin Hcl (Glucophage) 500 Mg Tab 500 MG PO QPM, TAB Zolpidem Tartrate (Zolpidem Tartrate) 5 Mg Tab 1 TAB PO HS PRN for Insomnia for 30 Days, #30 TAB [Ketoconazole Cr] () 1 DOSE TOP UD PRN for HANDS Discontinued Medications: Meloxicam (Mobic) 7.5 Mg Tab 15 MG PO QAM, TAB Admission Physical Exam As per Admitting History & Physical. Hospital Course Patient was a same day admission after undergoing a successful right TKA. She tolerated the procedure well. Post-operatively, her activity was progressed and well tolerated. Please refer to daily progress notes and PT notes for complete details. After exam on 11/19/17, patient felt to be stable for discharge home with HHPT. Patient will f/u in the office in 2 weeks for further evaluation including x-rays and incision check, sooner if having any issues or concerns. Below are pertinent labs/studies during their hospital stay: Last Resulted CBC 11/19/17 06:01 Last Resulted BMP 11/18/17 05:55 Last Vital Signs Documentation Date Time Temp Pulse Resp B/P (MAP) Pulse Ox O2 Delivery O2 Flow Rate FiO2 11/19/17 07:50 36.8 82 16 112/70 (84) 94 Room Air 11/18/17 06:58 2.0 Discharge Instructions ACTIVITY RECOMMENDATIONS: SELF CARE INSTRUCTIONS AFTER TOTAL KNEE REPLACEMENT A. You may need to continue a physical therapy program after discharge from the hospital. There are several options available to you. Your doctor will assist you in selecting the best one for you. 1. An out-patient facility 2 to 3 times a week for therapy or home therapy. 2. Continue working on all exercises taught to you in the hospital. Your goals should be to increase bending of your knee to 90 degrees and beyond and to fully straighten your knee. B. You may progress at your own pace from walking with a walker or crutches to a cane; then to no assistive devices. C. Make walking a part of your daily routine. Be up as much as comfortable with rest periods throughout the day. Rest with leg elevation is very important. Use the ice wrap frequently for the first 3-4 weeks. D. There are no restrictions on activities. You may ride in a car, shop, participate in research manufacturing operator and all social activities. E. Wear the long elastic stockings (JASON hose) 20 hours a day for one month after surgery. They can be removed several times a day for laundering and for a bath. F. Do not place a pillow behind your knee when resting. A pillow at your ankle is okay. SPECIAL CARE INSTRUCTIONS: VERY IMPORTANT TO READ AND REVIEW A. Take Coumadin, Aspirin or Lovenox (blood thinning medications) as directed by your doctor. If on Coumadin, have a pro-time (blood test) drawn according to your doctor's instructions. This will tell the doctor how well the Coumadin is thinning your blood. 1. YOU WILL BE GIVEN AN ORDER AT DISCHARGE FOR A CBC (BLOOD WORK). PLEASE HAVE THIS DONE 1 WEEK AFTER DISCHARGE. PLEASE CALL OUR OFFICE AFTER YOUR BLOODWORK IS COMPLETE SO WE CAN TRACK YOUR RESULTS. YOU WILL ONLY BE CALLED BACK IF RESULTS ARE ABNORMAL. IF YOU WILL BE RECEIVING HOMEHEALTH PHYSICAL THERAPY AND NURSING, THEY WILL DRAW THE CBC. IF YOU ARE GOING TO OUTPATIENT PHYSICAL THERAPY, YOU WILL NEED TO GO TO OUTPATIENT TESTING TO HAVE IT DRAWN. B. There are a few signs you need to watch for after you are home. Call [facility] if you notice any of the followin. Increased severe knee pain. Some pain is expected especially when you exercise. 2. Increased swelling in your leg or knee; pain or swelling of the calf muscle in either lower leg. 3. Any fluid drainage from the incision. 4. Shortness of breath or chest pain. C. Please call [facility] at if you have any concerns or questions about your operation or recovery. The doctor or his nurse will return your call promptly. D. You must take antibiotics before dental work, bladder, bowel or other surgery. Your doctor will provide you with a permanent care to carry describing this precaution. * YOU SHOULD START TAKING ASPIRIN, 325 MG, ONCE DAILY FOR 2 WEEKS AFTER YOU FINISH YOUR LOVENOX UNLESS OTHERWISE DIRECTED. * CALL IF INCREASED PAIN, REDNESS, DRAINAGE OR FEVER GREATER THAT 101. * WEAR JASON HOSE 20 HOURS PER DAY FOR 4 WEEKS. FOLLOW UP VISIT: Your first 2 appointments have already been scheduled for you and are included in your pre-op packet. If you are unsure of the dates of these appointments or to make changes , please call as soon as possible.
== END 2017-11-19 13:10 | disposition home health service (06) | DRG 470 ==
LOC: C.ACU 09:37 → C.3E 10:49 → EDBEDREQ 15:54 → ENRESERV 16:33
PROVIDERS: ADMIT Orthopaedic Surgery; ATTEND Orthopaedic Surgery
PROC: 0SRC0J9 Replacement of Right Knee Joint with Synthetic Substitute, Cemented, Open Approach (ICD-10-PCS; principal; 2017-11-17 12:15)
DX: M17.11 Unilateral primary osteoarthritis, right knee (principal); D62 Acute posthemorrhagic anemia; I11.9 Hypertensive heart disease without heart failure; E78.00 Pure hypercholesterolemia, unspecified; R73.03 Prediabetes; I25.10 Atherosclerotic heart disease of native coronary artery without angina pectoris; E03.9 Hypothyroidism, unspecified; J44.9 Chronic obstructive pulmonary disease, unspecified; Z79.899 Other long term (current) drug therapy; Z79.1 Long term (current) use of non-steroidal anti-inflammatories (NSAID); Z79.84 Long term (current) use of oral hypoglycemic drugs; Z79.82 Long term (current) use of aspirin; Z96.652 Presence of left artificial knee joint; Z87.891 Personal history of nicotine dependence; Z95.5 Presence of coronary angioplasty implant and graft; Z88.6 Allergy status to analgesic agent; Z88.5 Allergy status to narcotic agent; Z88.3 Allergy status to other anti-infective agents; Z88.8 Allergy status to other drugs, medicaments and biological substances; Z88.2 Allergy status to sulfonamides; Z88.1 Allergy status to other antibiotic agents; Z91.040 Latex allergy status